=== PATIENT | female | born 1970 | race Caucasian/White ===

== ENCOUNTER 2017-03-14 22:04 | Inpatient (IN) | payer SELFPAY ==
[~2017-03-14] VITALS: Ht 175.3 cm; Wt 91.0 kg
[~2017-03-14 22:04] MED LIST: KLOR20TA6 PO; LEVA750T9 PO
[2017-03-14 22:06] VITALS: BP 145/97; PULSE 118; RESP 18; TEMP 98.5; O2SAT 96
[2017-03-14 22:11] VITALS: BP 140/91; PULSE 109; RESP 20; O2SAT 98
[2017-03-14] MEDS ORDERED: EPINEPHrine HCL (1:1000) 1 MG/ML VIAL ONE (22:14)
[2017-03-14] MEDS ORDERED: diphenhydrAMINE HCL 50 MG/ML VIAL ONE (22:14)
[2017-03-14] MEDS ORDERED: methylPREDNISolone SOD SUCC 125 MG/2 ML VIAL ONE (22:14)
[2017-03-14] MEDS ORDERED: SODIUM CHLOR 0.9% 1000 ML INJ 1,000 ML IV SCH (22:16)
[2017-03-14] MEDS ORDERED: LISI-515 PO (22:21)
--- NOTE | 2017-03-14 22:21 | PD ---
HPI Chief Complaint: Allergic/Adverse Reaction Time Seen by Provider: 22:16 Travel History International Travel<30 days: No Contact w/Intl Traveler<30days: No Traveled to known affect area: No History of Present Illness HPI 46-year-old female presents to the ED for evaluation of facial swelling, sudden onset approximately 9:30 PM tonight. Patient endorses accompanying nausea and paresthesias in the fingers bilaterally. She denies hives or rash, sore throat, difficulties with breathing, closed throat sensation. She states that she recently began taking lisinopril. Last dose with dinner. She states that she took a Benadryl before arrival and that her symptoms have improved. She endorses drinking "6 or 7 beers" tonight. PFSH Past Medical History Tubal Ligation: Yes Social History Alcohol Use: Yes (OCC) Tobacco Use: Yes Substance Use: No Allergies-Medications (Allergen,Severity, Reaction): Coded Allergies: codeine (Unverified Adverse Reaction, Intermediate, N/V, 03/14/17) Reported Meds & Prescriptions Reported Meds & Active Scripts Active Reported Lisinopril 20 Mg Tab 20 Mg PO DAILY Review of Systems Except as stated in HPI: all other systems reviewed are Neg Physical Exam Narrative GENERAL: Well-nourished, well-developed tearful white female in no acute distress. SKIN: Warm and dry. HEAD: Normocephalic. Atraumatic. EYES: No scleral icterus. No injection or drainage. PERRLA. EOMI. Mild to moderate periorbital swelling. ENT: Pearly ryan tympanic membranes bilaterally. Nasal mucosa is moist. Diffuse, nonpitting orbital swelling. Positive uvular swelling. Uvula midline. Airway is patent. NECK: Supple, trachea midline. No JVD or lymphadenopathy. CARDIOVASCULAR: Regular rate and rhythm without murmurs, gallops, or rubs. RESPIRATORY: Breath sounds clear and equal bilaterally. No wheezing. No accessory muscle use. GASTROINTESTINAL: Abdomen soft, non-tender, nondistended. + Bowel sounds MUSCULOSKELETAL: No cyanosis, or edema. Moves all extremities spontaneously. BACK: Nontender without obvious deformity. No CVA tenderness. Data Data Last Documented VS Vital Signs Date Time Temp Pulse Resp B/P (MAP) Pulse Ox O2 Delivery O2 Flow Rate FiO2 03/14/17 22:23 118 140/91 03/14/17 22:22 18 98 Room Air 03/14/17 22:06 98.5 Orders Orders Epinephrine (1:1000) Inj (Adrenalin (1:1 (03/14/17 22:14) Diphenhydramine Inj (Benadryl Inj) (03/14/17 22:14) Methylprednisolone So Succ Inj (Solumedr (03/14/17 22:14) Ecg Monitoring (03/14/17 22:16) Iv Access Insert/Monitor (03/14/17 22:16) Oximetry (03/14/17 22:16) Diphenhydramine Inj (Benadryl Inj) (03/14/17 22:30) Methylprednisolone So Succ Inj (Solumedr (03/14/17 22:30) Sodium Chlor 0.9% 1000 Ml Inj (Ns 1000 M (03/14/17 22:16) Sodium Chloride 0.9% Flush (Ns Flush) (03/14/17 22:30) Complete Blood Count With Diff (03/14/17 22:21) Comprehensive Metabolic Panel (03/14/17 22:21) Epinephrine (1:1000) Inj (Adrenalin (1:1 (03/14/17 22:30) MDM Medical Decision Making Medical Screen Exam Complete: Yes Emergency Medical Condition: Yes Differential Diagnosis Angioedema versus allergic reaction versus impaired airway versus other Narrative Course 46-year-old female presents to the ED for evaluation of facial swelling, sudden onset approximately 9:30 PM tonight. Patient endorses accompanying nausea and paresthesias in the fingers bilaterally. She denies hives or rash, sore throat, difficulties with breathing, closed throat sensation. She states that she recently began taking lisinopril. Last dose with dinner. She states that she took a Benadryl before arrival and that her symptoms have improved. She endorses drinking "6 or 7 beers" tonight. Patient is tachycardic on presentation. On physical exam she is tearful with mild to moderate periorbital swelling as well as tenths swelling of the perioral area and mild to moderate uvular swelling. The airway is patent. The breath sounds are clear without wheezing. IV was established. Patient was administered a liter of normal saline, Decadron IV, Benadryl IV and intramuscular epinephrine. Disposition will be per Dr. Merlos. Bel Price Mar 14, 2017 22:21
[2017-03-14 22:22] VITALS: RESP 18; O2SAT 98
[2017-03-14] MEDS ORDERED: methylPREDNISolone SOD SUCC 125 MG/2 ML VIAL IVP ONE (22:30)
[2017-03-14] MEDS ORDERED: SODIUM CHLORIDE 0.9% FLUSH 10 ML FLUSH IV FLUSH PRN (22:30)
[2017-03-14] MEDS ORDERED: diphenhydrAMINE HCL 50 MG/ML VIAL IVP ONE (22:30)
[2017-03-14] MEDS ORDERED: EPINEPHrine HCL (1:1000) 1 MG/ML VIAL IM ONE (22:30)
[2017-03-14 23:48] VITALS: BP 127/61; PULSE 92; RESP 18; O2SAT 97
[2017-03-15 00:19] LABS: AUTOMATED NEUTROPHIL # 7.9 TH/MM3 (1.8-7.7); BASOPHIL # 0.1 TH/MM3 (0-0.2); BASOPHIL % 0.6 % (0.0-2.0); EOSINOPHIL # 0.2 TH/MM3 (0-0.4); EOSINOPHIL % 1.2 % (0.0-4.0); HEMATOCRIT 51.1 % (35.0-46.0); LYMPH % 38.3 % (9.0-44.0); LYMPHOCYTE # 5.8 TH/MM3 (1.0-4.8); MEAN CELL VOLUME 96.5 FL (80.0-100.0); MEAN CORPUSCULAR HGB CONC 33.2 % (32.0-36.0); MONO % 7.8 % (0.0-8.0); NEUT % 52.1 % (16.0-70.0); PLATELET COUNT 284 TH/MM3 (150-450); RED BLOOD COUNT 5.29 MIL/MM3 (4.00-5.30); WHITE BLOOD COUNT 15.2 TH/MM3 (4.0-11.0)
[2017-03-15 00:20] LABS: HEMO FLAGS AUTO DIFF
--- NOTE | 2017-03-15 00:20 | PD ---
Physical Exam Narrative I, Dr. Merlos, have reviewed the advance practice practitioner's documentation and am in agreement, met with the patient face to face, made the diagnosis, and the medical decision making was done by me. *My assessment and Findings: Angioedema vs. anaphylaxis 46yo F with PMH of HTN here with c/o lip swelling, periorbital swelling after eating chicken at home around 9:30pm today. States she thought she was choking because her throat seemed swollen. Pt did drink beer today. She is on lisinopril for HTN for 2 weeks. Never had this before. Denies any fever, chest pain, sob. Pt has periorbital swelling, lip swelling, uvula swelling. Lungs are clear bilaterally. Given the periorbital swelling and uvula swelling , this may be anaphylaxis as well although angioedema is certainly in the differential. Pt given epinephrine 0.3mg IM, methylprednisolone 125mg IV, diphenhydramine 50mg IV. Pt reevaluated at bedside and states lips swelling is better and she feels better. Still with uvula swelling. Feels that it is hard to swallow. Pt reevaluated at bedside and is doing better. Uvula is still a little swollen. Given the concern for airway protection, will admit to ICU for observation overnight. Discussed with Dr. Redd and accepted to the ICU for anaphylaxis. Lip swelling has significant improved. Labs reviewed, leukocytosis at 15.2 may be stress related. Data Data Last Documented VS Vital Signs Date Time Temp Pulse Resp B/P (MAP) Pulse Ox O2 Delivery O2 Flow Rate FiO2 03/14/17 23:48 92 18 127/61 (83) 97 Room Air 03/14/17 22:06 98.5 Orders Orders Epinephrine (1:1000) Inj (Adrenalin (1:1 (03/14/17 22:14) Diphenhydramine Inj (Benadryl Inj) (03/14/17 22:14) Methylprednisolone So Succ Inj (Solumedr (03/14/17 22:14) Ecg Monitoring (03/14/17 22:16) Iv Access Insert/Monitor (03/14/17 22:16) Oximetry (03/14/17 22:16) Diphenhydramine Inj (Benadryl Inj) (03/14/17 22:30) Methylprednisolone So Succ Inj (Solumedr (03/14/17 22:30) Sodium Chlor 0.9% 1000 Ml Inj (Ns 1000 M (03/14/17 22:16) Sodium Chloride 0.9% Flush (Ns Flush) (03/14/17 22:30) Complete Blood Count With Diff (03/14/17 22:21) Epinephrine (1:1000) Inj (Adrenalin (1:1 (03/14/17 22:30) Admit Order (Ed Use Only) (03/15/17 01:00) Labs Laboratory Tests Test 03/14/17 23:30 White Blood Count 15.2 TH/MM3 Red Blood Count 5.29 MIL/MM3 Hemoglobin 16.9 GM/DL Hematocrit 51.1 % Mean Corpuscular Volume 96.5 FL Mean Corpuscular Hemoglobin 32.0 PG Mean Corpuscular Hemoglobin Concent 33.2 % Red Cell Distribution Width 14.0 % Platelet Count 284 TH/MM3 Mean Platelet Volume 9.2 FL Neutrophils (%) (Auto) 52.1 % Lymphocytes (%) (Auto) 38.3 % Monocytes (%) (Auto) 7.8 % Eosinophils (%) (Auto) 1.2 % Basophils (%) (Auto) 0.6 % Neutrophils # (Auto) 7.9 TH/MM3 Lymphocytes # (Auto) 5.8 TH/MM3 Monocytes # (Auto) 1.2 TH/MM3 Eosinophils # (Auto) 0.2 TH/MM3 Basophils # (Auto) 0.1 TH/MM3 CBC Comment AUTO DIFF Differential Comment AUTO DIFF CONFIRMED MDM Supervised Visit with EDINSON: Yes Critical Care Narrative Aggregate critical care time was 35 minutes. Time to perform other separately billable procedures was not included in the critical care time. My time did not include minutes spent treating any other patients simultaneously or on activities that did not directly contribute to the patient's treatment. The services I provided to this patient were to treat and/or prevent clinically significant deterioration that could result in: respiratory distress or . I provided critical care services requiring my management, as noted below: Chart data review, documentation time, medication orders and management, vital sign assessments/reviewing monitor data, ordering and reviewing lab tests, ordering and interpreting/reviewing x-rays and diagnostic studies, care of the patient and discussion of the patient with the admitting physicians. Diagnosis Primary Impression: Angioedema Qualified Codes: T78.3XXA - Angioneurotic edema, initial encounter Admitting Information Admitting Physician Requests: Observation Marily Merlos DO Mar 15, 2017 00:20
[2017-03-15] MEDS ORDERED: SODIUM CHLOR 0.9% 1000 ML INJ 1,000 ML IV SCH (01:06)
--- NOTE | 2017-03-15 01:11 | HHI.HP ---
HPI Service Critical Care Medicine Primary Care Physician No Primary Care Physician Admission Diagnosis Anaphylaxis, angioedema Diagnosis: Travel History International Travel<30 Days: No Contact w/Intl Traveler <30 Da: No Traveled to Known Affected Are: No History of Present Illness 46-year-old female presents for evaluation of facial swelling, sudden onset approximately 9:30 PM last night. Patient endorses accompanying nausea and paresthesias in the fingers bilaterally. She denies hives or rash, sore throat, difficulties with breathing, closed throat sensation. She states that she recently began taking lisinopril. Last dose with dinner. She states that she took a Benadryl before arrival and that her symptoms have improved. She endorses drinking "6 or 7 beers" tonight. She has received Solu-Medrol and Benadryl in the emergency department and her symptoms resolved. She is comfortably sitting in the bed on room air very tearful about staying in the hospital and would appreciated to be discharged. Review of Systems Constitutional: COMPLAINS OF: Dizziness, DENIES: Diaphoretic episodes, Fatigue , Fever, Weight gain, Weight loss, Chills, Change in appetite, Night Sweats Endocrine: DENIES: Abnorml menstrual pattern, Heat/cold intolerance, Polydipsia , Polyuria, Polyphagia Eyes: DENIES: Blurred vision, Diplopia, Eye inflammation, Eye pain, Vision loss , Photosensitivity, Double Vision Ears, nose, mouth, throat: DENIES: Tinnitus, Hearing loss, Vertigo, Nasal discharge, Oral lesions, Throat pain, Hoarseness, Ear Pain, Running Nose, Epistaxis, Sinus Pain, Toothache, Odynophagia Respiratory: DENIES: Apneas, Cough, Snoring, Wheezing, Hemoptysis, Sputum production, Shortness of breath Cardiovascular: DENIES: Chest pain, Palpitations, Syncope, Dyspnea on Exertion , PND, Lower Extremity Edema, Orthopnea, Claudication Gastrointestinal: DENIES: Abdominal pain, Black stools, Bloody stools, Constipation, Diarrhea, Nausea, Vomiting, Difficulty Swallowing, Anorexia Genitourinary: DENIES: Abnormal vaginal bleeding, Dysmenorrhea, Dyspareunia, Sexual dysfunction, Urinary frequency, Urinary incontinence, Urgency, Hematuria , Dysuria, Nocturia, Vaginal discharge Musculoskeletal: DENIES: Joint pain, Muscle aches, Stiffness, Joint Swelling, Back pain, Neck pain Integumentary: DENIES: Abnormal pigmentation, Pruritus, Rash, Nail changes, Breast masses, Breast skin changes, Nipple discharge Hematologic/lymphatic: DENIES: Bruising, Lymphadenopathy Immunologic/allergic: DENIES: Eczema, Urticaria Neurologic: COMPLAINS OF: Paresthesias, DENIES: Abnormal gait, Headache, Localized weakness, Seizures, Speech Problems, Tremor, Poor Balance Psychiatric: COMPLAINS OF: Anxiety, DENIES: Confusion, Mood changes, Depression , Hallucinations, Agitation, Suicidal Ideation, Homicidal Ideation, Delusions Past Family Social History Allergies: Coded Allergies: codeine (Unverified Adverse Reaction, Intermediate, N/V, 03/14/17) Past Medical History Hypertension Past Surgical History Tubal ligation Reported Medications Lisinopril Reported Meds & Active Scripts Active Active Ordered Medications Current Medications Medications (Trade) Dose Ordered Sig/Dari Route PRN Reason Start Time Stop Time Status Last Admin Dose Admin Sodium Chloride 1,000 ml @ 84 mls/hr [id number] IV 03/15/17 01:06 Sodium Chloride (NS Flush) 2 ml UNSCH PRN .XX FLUSH AFTER USING IV ACCESS 03/15/17 01:15 Sodium Chloride (NS Flush) 2 ml BID .XX 03/15/17 09:00 Acetaminophen (Tylenol) 650 mg Q6H PRN PO PAIN 1-10 AND/OR FEVER >101F 03/15/17 01:15 Famotidine (Pepcid Inj) 20 mg Q12HR IV PUSH 03/15/17 09:00 Ondansetron HCl (Zofran Inj) 4 mg Q6H PRN IV NAUSEA OR VOMITING 03/15/17 01:15 Albuterol/ Ipratropium (Duoneb Neb) 1 ampule Q2HR NEB PRN INH WHEEZING 03/15/17 01:15 Enoxaparin Sodium (Lovenox Inj) 40 mg Q24H SQ 03/15/17 02:00 Miscellaneous Information 1 [id number] XX 03/15/17 01:15 Chlorhexidine Gluconate (Chlorhexidine 2% Cloth) 3 pack Taper DAILY@04 TOP 03/15/17 04:00 03/11/18 03:59 Chlorhexidine Gluconate (Chlorhexidine 2% Cloth) 3 pack UNSCH PRN TOP HYGIENIC CARE 03/15/17 01:15 Senna/Docusate Sodium (Jaki-Colace) 1 tab BID PO 03/15/17 09:00 Magnesium Hydroxide (Milk Of Magnesia Liq) 30 ml Q12H PRN PO MILD - MODERATE CONSTIPATION 03/15/17 01:15 Sennosides (Senokot) 17.2 mg Q12H PRN PO MODERATE - SEVERE CONSTIPATION 03/15/17 01:15 Bisacodyl (Dulcolax Supp) 10 mg DAILY PRN RECTAL SEVERE CONSITIPATION 03/15/17 01:15 Lactulose (Lactulose Liq) 30 ml DAILY PRN PO SEVERE CONSITIPATION 03/15/17 01:15 Diphenhydramine HCl (Benadryl Inj) 25 mg Q4H IV PUSH 03/15/17 01:15 03/15/17 21:16 Dexamethasone Sodium Phosphate (Decadron Inj) 10 mg DAILY IV 03/15/17 09:00 03/17/17 09:01 Hydralazine HCl (Apresoline Inj) 20 mg Q4H PRN IV PUSH SBP>160, DBP>90 03/15/17 01:15 Family History No family history of early coronary artery disease or cancer Social History Smokes, drinks occasionally, no history of illicit drug abuse Physical Exam Vital Signs Vital Signs Date Time Temp Pulse Resp B/P (MAP) Pulse Ox O2 Delivery O2 Flow Rate FiO2 03/14/17 23:48 92 18 127/61 (83) 97 Room Air 03/14/17 22:23 118 140/91 03/14/17 22:22 18 98 Room Air 03/14/17 22:11 109 20 140/91 (107) 98 03/14/17 22:06 98.5 118 18 145/97 (113) 96 Room Air Physical Exam GENERAL: Well-nourished, well-developed patient. SKIN: Warm and dry. HEAD: Normocephalic. EYES: No scleral icterus. No injection or drainage. NECK: Supple, trachea midline. No JVD or lymphadenopathy. CARDIOVASCULAR: Regular rate and rhythm without murmurs, gallops, or rubs. RESPIRATORY: Breath sounds equal bilaterally. No accessory muscle use. GASTROINTESTINAL: Abdomen soft, non-tender, nondistended. MUSCULOSKELETAL: No cyanosis, or edema. BACK: Nontender without obvious deformity. NEURO EXAM: GCS: M6 V5 E4 Mental Status: The patient is alert and oriented to person, place, and time with normal speech. Cranial Nerves: Visual acuity intact bilaterally. Visual mayo normal in all quadrants. Pupils are round, reactive to light. Extraocular movements are intact without ptosis. Hearing is normal bilaterally. Voice is normal. Tongue protrudes midline and moves symmetrically. Reflexes: Biceps, patellar, and Achilles are 2/4 bilaterally. No clonus. Sensation: Sensation is intact bilaterally to pain and light touch. Two-point discrimination is intact. Motor: Good muscle tone. Strength is 5/5 bilaterally. Cerebellar: [id number]-[id number] and [id number]-ln-[id number] test normal bilaterally. Laboratory Laboratory Tests Test 03/14/17 23:30 White Blood Count 15.2 Red Blood Count 5.29 Hemoglobin 16.9 Hematocrit 51.1 Mean Corpuscular Volume 96.5 Mean Corpuscular Hemoglobin 32.0 Mean Corpuscular Hemoglobin Concent 33.2 Red Cell Distribution Width 14.0 Platelet Count 284 Mean Platelet Volume 9.2 Neutrophils (%) (Auto) 52.1 Lymphocytes (%) (Auto) 38.3 Monocytes (%) (Auto) 7.8 Eosinophils (%) (Auto) 1.2 Basophils (%) (Auto) 0.6 Neutrophils # (Auto) 7.9 Lymphocytes # (Auto) 5.8 Monocytes # (Auto) 1.2 Eosinophils # (Auto) 0.2 Basophils # (Auto) 0.1 CBC Comment AUTO DIFF Result Diagram: 03/14/17 2330 Caprini VTE Risk Assessment Caprini VTE Risk Assessment: No/Low Risk (score <= 1) Caprini Risk Assessment Model Point Value = 1 Point Value = 2 Point Value = 3 Point Value = 5 Age 41-60 Minor surgery BMI > 25 kg/m2 Swollen legs Varicose veins or History of unexplained or recurrent spontaneous Oral contraceptives or hormone replacement Sepsis (< 1 month) Serious lung disease, including pneumonia (< 1 month) Abnormal pulmonary function Acute myocardial infarction Congestive heart failure (< 1 month) History of inflammatory bowel disease Medical patient at bed rest Age 61-74 Arthroscopic surgery Major open surgery (> 45 min) Laparoscopic surgery (> 45 min) Malignancy Confined to bed (> 72 hours) Immobilizing plaster cast Central venous access Age >= 75 History of VTE Family history of VTE Factor V Leiden Prothrombin [id number] Lupus anticoagulant Anticardiolipin antibodies Elevated serum homocysteine Heparin-induced thrombocytopenia Other congenital or acquired thrombophilia Stroke (< 1 month) Elective arthroplasty Hip, pelvis, or leg fracture Acute spinal cord injury (< 1 month) Prophylaxis Regimen Total Risk Factor Score Risk Level Prophylaxis Regimen 0-1 Low Early ambulation 2 Moderate Order ONE of the following: *Sequential Compression Device (SCD) *Heparin 5000 units SQ BID 3-4 Higher Order ONE of the following medications: *Heparin 5000 units SQ TID *Enoxaparin/Lovenox 40 mg SQ daily (WT < 150 kg, CrCl > 30 mL/min) *Enoxaparin/Lovenox 30 mg SQ daily (WT < 150 kg, CrCl > 10-29 mL/min) *Enoxaparin/Lovenox 30 mg SQ BID (WT < 150 kg, CrCl > 30 mL/min) AND/OR *Sequential Compression Device (SCD) 5 or more Highest Order ONE of the following medications: *Heparin 5000 units SQ TID (Preferred with Epidurals) *Enoxaparin/Lovenox 40 mg SQ daily (WT < 150 kg, CrCl > 30 mL/min) *Enoxaparin/Lovenox 30 mg SQ daily (WT < 150 kg, CrCl > 10-29 mL/min) *Enoxaparin/Lovenox 30 mg SQ BID (WT < 150 kg, CrCl > 30 mL/min) AND *Sequential Compression Device (SCD) Assessment and Plan Assessment and Plan Allergic reaction to lisinopril - Benadryl - IV steroid - Pepcid - Symptoms resolved in the emergency department, patient is completely asymptomatic Hypertension - DC lisinopril - Avoid ACEi and ARBs - Norvasc 10 mg by mouth every daily Leukocytosis - Reactive to stress - Postprandial - No signs of infection, no fever, no chills, no diaphoresis - No indication for antibiotics Disposition - DC home - Follow-up with primary care physician within 24 hours Level I Xavier Redd MD Mar 15, 2017 01:11
[2017-03-15] MEDS ORDERED: hydrALAZINE HCL 20 MG/ML VIAL IV PUSH PRN (01:15)
[2017-03-15] MEDS ORDERED: ONDANSETRON HCL 4 MG/2 ML VIAL IV PRN (01:15)
[2017-03-15] MEDS ORDERED: MAGNESIUM HYDROXIDE SUSP 30 ML CUP PO PRN (01:15)
[2017-03-15] MEDS ORDERED: SENNOSIDES 8.6 MG TAB PO PRN (01:15)
[2017-03-15] MEDS ORDERED: ACETAMINOPHEN 325 MG TAB PO PRN (01:15)
[2017-03-15] MEDS ORDERED: RESP: ALBUTEROL 2.5 MG/IPRATROPIUM 0.5 MG NEB (PRN) INH (01:15)
[2017-03-15] MEDS ORDERED: CHLORHEXIDINE GLUCONATE 2 % 1 PACK (2 CLOTHS) TOP PRN (01:15)
[2017-03-15] MEDS ORDERED: MISCELLANEOUS NURSING INFORMATION XX SCH (01:15)
[2017-03-15] MEDS ORDERED: BISACODYL 10 MG SUPP RECTAL PRN (01:15)
[2017-03-15] MEDS ORDERED: LACTULOSE SYRUP 20 GM/30 ML CUP PO PRN (01:15)
[2017-03-15] MEDS ORDERED: SODIUM CHLORIDE 0.9% FLUSH 10 ML FLUSH PRN (01:15)
[2017-03-15] MEDS ORDERED: ENOXAPARIN SODIUM 40 MG/0.4 ML SYRINGE SQ SCH (02:00)
[2017-03-15 02:10] LABS: SCAN/DIFF AUTO DIFF CONFIRMED
[2017-03-15 02:57] VITALS: BP 139/73; PULSE 95; RESP 18; O2SAT 97
[2017-03-15] MEDS: diphenhydrAMINE HCL 50 MG/ML VIAL IV PUSH SCH ×2 (02:57→05:15)
[2017-03-15] MEDS ORDERED: diphenhydrAMINE HCL 25 MG CAP PO PRN (03:00)
[2017-03-15] MEDS ORDERED: MEDR4PAK PO (03:12)
[2017-03-15] MEDS ORDERED: FAMO1TAB37 PO (03:13)
[2017-03-15] MEDS ORDERED: AMLO10 PO (03:14)
--- NOTE | 2017-03-15 03:19 | HHI.DS ---
Discharge Summary Admission Date Mar 15, 2017 at 01:01 Admitting Diagnosis Anaphylaxis, angioedema CBC/BMP: 03/14/17 2330 Significant Findings Laboratory Tests Test 03/14/17 23:30 White Blood Count 15.2 TH/MM3 (4.0-11.0) Hemoglobin 16.9 GM/DL (11.6-15.3) Hematocrit 51.1 % (35.0-46.0) Neutrophils # (Auto) 7.9 TH/MM3 (1.8-7.7) Lymphocytes # (Auto) 5.8 TH/MM3 (1.0-4.8) Monocytes # (Auto) 1.2 TH/MM3 (0-0.9) Imaging Chest x-ray: No cardiopulmonary disease PE at Discharge GENERAL: Well-nourished, well-developed patient. SKIN: Warm and dry. HEAD: Normocephalic. EYES: No scleral icterus. No injection or drainage. NECK: Supple, trachea midline. No JVD or lymphadenopathy. CARDIOVASCULAR: Regular rate and rhythm without murmurs, gallops, or rubs. RESPIRATORY: Breath sounds equal bilaterally. No accessory muscle use. GASTROINTESTINAL: Abdomen soft, non-tender, nondistended. MUSCULOSKELETAL: No cyanosis, or edema. BACK: Nontender without obvious deformity. NEURO EXAM: GCS: M6 V5 E4 Mental Status: The patient is alert and oriented to person, place, and time with normal speech. Cranial Nerves: Visual acuity intact bilaterally. Visual mayo normal in all quadrants. Pupils are round, reactive to light. Extraocular movements are intact without ptosis. Hearing is normal bilaterally. Voice is normal. Tongue protrudes midline and moves symmetrically. Reflexes: Biceps, patellar, and Achilles are 2/4 bilaterally. No clonus. Sensation: Sensation is intact bilaterally to pain and light touch. Two-point discrimination is intact. Motor: Good muscle tone. Strength is 5/5 bilaterally. Cerebellar: Wiersz-kl-sxce and dnnm-zm-rfrv test normal bilaterally. Hospital Course Patient has presented to emergency department with some swelling of her face after taking lisinopril, accompanied by some paresthesias in her hands. After IV Solu-Medrol Benadryl and Pepcid in the emergency department her symptoms completely resolved and patient is asymptomatic requesting to be discharged home. She is in no distress, in stable condition. Pt Condition on Discharge: Stable Discharge Instructions DIET: Follow Instructions for: As Tolerated, No Restrictions Speech Therapy-Diet Recommenda: Regular Additional Information Discharge medications: Medrol Dosepak by mouth take as directed Norvasc 10 mg by mouth daily Pepcid 20 ng by mouth twice a day Benadryl 25 mg by mouth every 6 hours when necessary for itching or swelling Follow-up appointments: With primary care physician within 24 hours Return to ED if symptoms return: Xavier Redd MD Mar 15, 2017 03:19
[2017-03-15] MEDS ORDERED: CHLORHEXIDINE GLUCONATE 2 % 1 PACK (2 CLOTHS) TOP SCH (04:00)
[2017-03-15] MEDS ORDERED: methylPREDNISolone 4 MG TAB PO SCH (08:00)
[2017-03-15] MEDS ORDERED: DEXAMETHASONE SOD PHOS 20 MG/5 ML VIAL IV SCH (09:00)
[2017-03-15] MEDS ORDERED: FAMOTIDINE 20 MG/2 ML VIAL IV PUSH SCH (09:00)
[2017-03-15] MEDS ORDERED: SODIUM CHLORIDE 0.9% FLUSH 10 ML FLUSH SCH (09:00)
[2017-03-15] MEDS ORDERED: DOCUSATE SODIUM 50 MG/SENNA 8.6 MG TAB PO SCH (09:00)
[2017-03-15] MEDS ORDERED: FAMOTIDINE 20 MG TAB PO SCH (09:00)
[2017-03-16] MEDS ORDERED: methylPREDNISolone 4 MG TAB PO SCH ×2 (08:00→21:00)
[2017-03-17] MEDS ORDERED: methylPREDNISolone 4 MG TAB PO SCH (08:00)
[2017-03-18] MEDS ORDERED: methylPREDNISolone 4 MG TAB PO SCH (08:00)
[2017-03-19] MEDS ORDERED: methylPREDNISolone 4 MG TAB PO SCH (08:00)
[2017-03-20] MEDS ORDERED: methylPREDNISolone 4 MG TAB PO SCH (08:00)
== END 2017-03-15 06:21 | disposition home or self-care (01) | DRG 916 ==
LOC: NEPC 22:04 → NEDA 03-15 01:01
PROVIDERS: ADMIT Internal Medicine Critical Care Medicine; ATTEND Internal Medicine Critical Care Medicine
DX: T78.3XXA Angioneurotic edema, initial encounter (principal); I10 Essential (primary) hypertension; D72.829 Elevated white blood cell count, unspecified; Z72.0 Tobacco use; T46.4X5A Adverse effect of angiotensin-converting-enzyme inhibitors, initial encounter
CPT/HCPCS: 85025; 96361; 96372; 96374; 96375; 96376; J0171; J1200; J2930; J7030